=== PATIENT | male | born 1980 | race Caucasian/White ===

== ENCOUNTER 2019-09-11 17:39 | Observation (INO) ==
[2019-09-11] MEDS ORDERED: *HR* LORazepam 2 MG/ML VIAL IM STA (18:05)
[2019-09-11 18:37] LABS: Basophils % 0.3 %; Eosinophils % 0.7 %; Hematocrit 42.8 % (37.5-50.1); Immature Granulocytes % 0.2 % (0-4); Lymphocytes # 1.6 K/mcL (0.6-4.6); Lymphocytes % 26.2 %; Mean Corpuscular HGB Conc 32.7 g/dL (31.6-35.5); Mean Corpuscular Hemoglobin 26.3 pg (28.0-33.3); Mean Corpuscular Volume 80.3 fL (83.0-100.0); Mean Platelet Volume 10.3 fL (9.4-12.4); Monocytes # 0.5 K/mcL (0.0-1.3); Monocytes % 8.3 %; Neutrophils # 3.9 K/mcL (1.6-8.9); Platelet Count 283 K/mcL (140-400); Red Blood Count 5.33 M/mcL (4.19-5.50); Red Cell Distribution Width 14.6 % (11.5-14.5); Segmented Neutrophils % 64.3 %
[2019-09-11 18:39] LABS: Estimated Average Glucose 128 mg/dl
[2019-09-11 18:53] LABS: Acetaminophen < 10 mcg/mL (10-20); BUN/Creatinine Ratio 10 (6-26); Blood Urea Nitrogen 10 mg/dL (6-20); Carbon Dioxide 27 mEq/L (23-29); Chloride 105 mEq/L (98-107); Chol/HDL Ratio 2.8 (0-4.9); Cholesterol 113 mg/dL (< 200); Ethanol < 10 mg/dL (Less than 10); Glucose 102 mg/dL (70-105); HDL Cholesterol 41 mg/dL (40-59); LDL Cholesterol,Calculated 63 mg/dL (0-99); Osmolality,Calculated 285 (280-300); Potassium 4.2 mEq/L (3.5-5.1); Salicylate < 2.5 mg/dL (15.0-30.0); Sodium 138 mEq/L (136-145); Triglycerides 47 mg/dL (< 150); eGFR For African Americans > 60 (> 60); eGFR For Non-African Americans > 60 (> 60)
[2019-09-11 19:10] LABS: Bilirubin,Urine Negative (Negative); Blood,Urine Negative (Negative); Clarity,Urine Clear (Clear); Color,Urine Yellow (Yellow); Glucose,Urine (UA) Normal (Normal); Ketones,Urine Negative (Negative); Leukocyte Esterase,Urine Negative (Negative); Nitrite,Urine Negative (Negative); PH,Urine 7.5 pH Units (5.0-8.0); Protein,Urine Negative (Neg-Trace); Specific Gravity,Urine 1.014 (1.010-1.025); Urobilinogen,Urine Normal (Normal)
[2019-09-11 19:43] LABS: Amphetamine Screen,Urine Positive ng/mL (Cutoff=1000); Barbiturate Screen,Urine Negative ng/mL (Cutoff=200); Benzodiazepines Screen,Urine Negative ng/mL (Cutoff=200); Cannabinoid Screen,Urine Negative ng/mL (Cutoff = 50); Cocaine Screen,Urine Negative ng/mL (Cutoff= 300); Opiate Screen,Urine Negative ng/mL (Cutoff=300); Phencyclidine Screen,Urine Negative ng/mL (Cutoff=25)
[2019-09-11] MEDS ORDERED: *HR* LORazepam 1 MG TABLET PO ONE (20:40)
[2019-09-11] MEDS ORDERED: *HR* LORazepam 2 MG/ML VIAL IM PRN (21:32)
[2019-09-11] MEDS ORDERED: MOM Conc 10 ML UD.LIQ PO PRN (21:32)
[2019-09-11] MEDS ORDERED: hydrOXYzine pamoate 25 MG CAPSULE PO PRN (21:32)
[2019-09-11] MEDS ORDERED: *HR* LORazepam 1 MG TABLET PO PRN (21:32)
[2019-09-11] MEDS ORDERED: Haloperidol Lactate 5 MG/ML VIAL IM PRN (21:32)
[2019-09-11] MEDS ORDERED: Acetaminophen 325 MG TABLET PO PRN (21:32)
[2019-09-11] MEDS ORDERED: Mag Hydrox/Al Hydrox/Simeth 30 ML UDC PO PRN (21:32)
[2019-09-11] MEDS: traZODone 50 MG TABLET PO PRN (22:14)
[2019-09-12] MEDS: traZODone 50 MG TABLET PO PRN (20:30)
[2019-09-13 09:34] VITALS: BP 113/77
== END 2019-09-13 10:05 ==
LOC: EMEROOARM 17:39 → 1ANU 17:39
PROVIDERS: ADMIT Psychiatry & Neurology Psychiatry; ATTEND Psychiatry & Neurology Psychiatry